=== PATIENT | female | born 1980 | race Caucasian/White ===

== ENCOUNTER 2019-09-01 17:59 | Emergency (ER) | payer BC, OTHER ==
[2019-09-01 18:07] VITALS: TEMP 98
[2019-09-01] MEDS ORDERED: DEXAMETHASONE SOD PHOSPHATE 10 MG/ML 1 ML VIAL IM STA (18:16)
--- NOTE | 2019-09-01 18:19 | ED ---
Allergic Reaction HPI - General Chief complaint: Allergic Reaction Stated complaint: Allergic reaction Time Seen by Provider: 09/01/19 18:08 Source: patient Mode of arrival: ambulatory Limitations: no limitations - History of Present Illness Initial Comments: Patient is a 38-year-old female with ALLERGIES to peanut butter is presenting to emergency Department with a chief complaint of an ALLERGIC reaction. Patient reports she ate peanut butter laced cookies about 5 hours prior to ED arrival. Patient reports taking oral Benadryl and did report some improvement although the symptoms have not completely resolved. Patient reports she had previous similar incidents where she would only take Benadryl and the symptoms were completely resolved. Patient currently reports some dysphagia although she is able to swallow solids and liquids without issues. Patient reports she "thinks" that she is having difficulty breathing although she does not appear to be in respiratory distress. Patient denies taking any other medications alleviate the symptoms. Patient denies any facial swelling. - Related Data Previous Rx's Medication Instructions Recorded predniSONE 50 mg PO DAILY #3 tab 09/01/19 Allergies Allergy/AdvReac Type Severity Reaction Status Date / Time peanut Allergy Anaphylaxis Verified 09/01/19 18:04 peas Allergy Anaphylaxis Uncoded 03/19/14 15:30 Review of Systems ROS Statement: Those systems with pertinent positive or pertinent negative responses have been documented in the HPI. ROS Other: All systems not noted in ROS Statement are negative. Past Medical History Past Medical History: Asthma Additional Past Medical History / Comment(s): Migraine headaches. Obstetric history: She is a 5 para 3013 with a history of 3 term spontaneous vaginal deliveries in 2004 2007 and 2009. She had a 6 week spontaneous miscarriage in 2005. History of Any Multi-Drug Resistant Organisms: None Reported Past Surgical History: No Surgical Hx Reported Past Anesthesia/Blood Transfusion Reactions: No Reported Reaction Past Psychological History: No Psychological Hx Reported Smoking Status: Never smoker Past Alcohol Use History: None Reported Past Drug Use History: None Reported General Exam Limitations: no limitations General appearance: alert, in no apparent distress Head exam: Present: atraumatic, normocephalic, normal inspection Eye exam: Present: normal appearance Pupils: Present: normal accommodation ENT exam: Present: normal exam, normal oropharynx (Posterior pharynx visualized. Uvula midline. No tonsillar swelling.), mucous membranes moist, TM's normal bilaterally, normal external ear exam Neck exam: Present: normal inspection, full ROM. Absent: lymphadenopathy Respiratory exam: Present: normal lung sounds bilaterally. Absent: respiratory distress (No respiratory distress of any kind.) Cardiovascular Exam: Present: regular rate, normal rhythm, normal heart sounds Extremities exam: Present: normal inspection, full ROM Back exam: Present: normal inspection, full ROM Neurological exam: Present: alert, oriented X3 Psychiatric exam: Present: normal affect, normal mood Skin exam: Present: warm, intact, normal color Course Vital Signs 09/01/19 09/01/19 09/01/19 18:04 18:16 18:18 Temperature 98 F Pulse Rate 108 H 104 H Respiratory 18 22 20 Rate Blood Pressure 138/94 O2 Sat by Pulse 100 100 Oximetry Medical Decision Making - Medical Decision Making Patient is a 38-year-old female with history of pain about her ALLERGIES presenting to emergency Department with a chief complaint of an ALLERGIC reaction. Patient ate peanut butter laced cookies. Physical examination is not indicative of any respiratory distress. Patient appears to be swallowing liquids without issues. Posterior pharynx fully visualized. Patient given 10 mg of Decadron. Patient observed in the ED. Patient reports improvement in symptoms. Patient will be discharged with several days of oral prednisone. I low suspicion for anaphylactic reaction to surgery the patient ate a cookie about 5 hours prior to ED arrival. Strict return parameters were thoroughly discussed patient was understanding and agreeable. Case discussed physician. Disposition Clinical Impression: Food allergy, Allergic reaction to food Disposition: HOME SELF-CARE Condition: Stable Instructions (If sedation given, give patient instructions): Anaphylaxis (ED) Additional Instructions: Please take prescribed medication as directed. Please follow with primary care. Please return to emergency department is symptoms worsen. Prescriptions: predniSONE 50 mg PO DAILY #3 tab Is patient prescribed a controlled substance at d/c from ED?: No Referrals: Kanwal Gillette III, MD [Primary Care Provider] - 1-2 days Time of Disposition: 19:09
[2019-09-01 19:20] VITALS: BP 126/67; PULSE 101; RESP 18
== END 2019-09-01 19:15 | disposition home or self-care (01) ==
LOC: EC 17:59
DX: T78.1XXA Other adverse food reactions, not elsewhere classified, initial encounter (principal); Z91.010 Allergy to peanuts
CPT/HCPCS: 96372 ×2; 99284 ×2; J1100; 99283